=== PATIENT | male | born 1960 ===

== ENCOUNTER 2018-07-05 17:00 | Inpatient (IN) | payer SELFPAY ==
[2018-07-05] MEDS ORDERED: ACETAMINOPHEN 325 MG TAB PO PRN (19:44)
[2018-07-05] MEDS ORDERED: LORazepam 0.5 MG TAB PO PRN (19:44)
[2018-07-05] MEDS ORDERED: MAG HYDROX/AL HYDROX/SIMETH 30 ML UDCUP PO PRN (19:44)
[2018-07-05] MEDS ORDERED: NICOTINE POLACRILEX 2 MG GUM B PRN (19:44)
[2018-07-05] MEDS ORDERED: MAGNESIUM HYDROXIDE 30 ML UDCUP PO PRN (19:44)
[2018-07-06] MEDS: ASPIRIN EC 81 MG TAB PO SCH (08:49)
[2018-07-06] MEDS: ESCITALOPRAM OXALATE 10 MG TAB PO SCH (13:13)
--- NOTE | 2018-07-06 13:30 | BCON ---
[f rep st] BEHAVIORAL HEALTH CONSULTATION DATE OF CONSULTATION: 07/06/2018 REFERRING PHYSICIAN: Milo Lombardo MD REASON FOR REFERRAL: Medical clearance for inpatient behavioral health stay. HISTORY OF PRESENT ILLNESS: This patient was sent to the emergency department from [facility] for depression. He is currently without any acute complaints. PAST MEDICAL HISTORY: 1. Obesity. 2. Hypertension. PAST SURGICAL HISTORY: He has had dental extractions. MEDICATIONS: Prior to admission, only aspirin. ALLERGIES: Listed to fish containing products and pollen extracts. SOCIAL HISTORY: He lives by himself in an apartment. He is a of both [employer] and the [employer]. 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 He is a nonsmoker. FAMILY HISTORY: Noncontributory. REVIEW OF SYSTEMS: He reports he has had recent weight loss due to depression and eating less food. He denies fevers or chills. He denies heat or cold intolerance. He denies cough or dyspnea. He denies nausea, vomiting, constipation, or diarrhea. Otherwise, a 10-point review of systems is negative. PHYSICAL EXAM: VITAL SIGNS: Blood pressure is 118/73, heart rate is 100, respiratory rate is 18, oxygen saturation is 94% on room air. Temperature is 36.5 degrees centigrade. His weight is 102.1 kg for a body mass index of 37.4. GENERAL: This is an obese man, dressed in street clothes, sitting up in his bed, cooperative and in no acute distress. HEENT: Extraocular movements are intact. Pupils are equal, round, and reactive to light. Mucous membranes are moist. Dentition is in poor condition. He has an uncrowded airway, Mallampati class 1. NECK: Supple. HEART: There is a regular rate and rhythm. He is tachycardiac. There are no murmurs, rubs, or gallops. There is no JVD. LUNGS : Clear to auscultation bilaterally. ABDOMEN: Obese and benign. EXTREMITIES : There is no cyanosis or clubbing, there is trace to 1+ edema of the left lower extremity. NEUROLOGIC: He is alert and oriented x3. Cranial nerves 2-12 are grossly intact. There is no focal weakness. Sensation is intact to light touch and gait is within normal limits. LABORATORY STUDIES: Drawn today. Renal function and electrolytes were normal except for a creatinine of 1.3 with an estimated GFR of 57. Hemoglobin A1c was normal at 4.8. Liver function tests revealed a slightly high conjugated bilirubin at 0.7 and otherwise were normal. Lipid panel showed a low cholesterol at 133, a low HDL at 29, and otherwise was unremarkable. ASSESSMENT/RECOMMENDATIONS: 1. Mental health issues pending further evaluation and management per Psychiatry and the mental health team. 2. Obesity with recent weight loss, likely due to his depression. He reported that he plans to establish a healthy diet and he gets regular exercise from walking. Consider dietary consult for educational purposes. 3. Tachycardia of unclear etiology. No signs of congestive heart failure. Observe and if he continues to be consistently tachycardic, consider an electrocardiogram. 4. Renal insufficiency, unclear chronicity. He reports a history of hypertension, so it might be hypertensive in etiology and it could be that he is no longer hypertensive having lost weight. Renal insufficiency should be taken into consideration in terms of psychiatric medication dosing. He should establish with a primary care provider if he has not already for further monitoring. I see no medical contraindications to this patient's continued stay on the inpatient behavioral health unit or to any psychiatric medications or procedures. Thank you very much for including me in the care of this patient and please do not hesitate to contact me or the hospitalist service should there be need for further medical evaluation. /[id number]/MODL MTDD
--- NOTE | 2018-07-06 13:59 | ASMTBHMTP ---
Master Treatment Plan Master Treatment Plan Answers: Depressed Mood with for: Suicidal Ideation Date: 07/06/2018 Diagnosis on Admission: unknown Expected length of stay: 3-5 Reason for admission: Notes: The patient reported that he had been experiencing "bad times." He reported that on June 10, 2018 he turned of his electricity and began to restrict his meals to a half meal per day as he "sat in the dark." The patient reported that he placed a kitchen knife in the bathroom and waited for the day to come that he would attempt suicide. Patient's stated presenting problems: Notes: The patient reported that he had experienced depressive symptoms on one other occasion; in 2014 he was evicted from a residence that he shared with his brother who was not paying his portion of the rent. They have since been estranged from one another. The patient is unemployed; citing a lack of citizenship documents. 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 Patient's goals for treatment: Notes: The patient would like to reintroduce healthy eating habits during inpatient tx. Patient's strengths: Notes: The patient reported that he is "good at figuring things out." Identify supports outside of hospital: Notes: The patient is supported by the [facility]. He has some relatives in [facility]. Discharge criteria: Notes: Suicidal ideation will resolve and the patient will have a plan to safely manage recurrent suicidal ideation. Initial disposition plan/considerations: Notes: The patient will return to his apartment and outpatient routine upon discharge. Master Treatment Plan Required Signatures Psychiatrist signature: Answers: Psychiatrist: RN on-shift signature: Answers: RN: Patient signature: Answers: Patient: Date Signed: 07/06/2018 01:58 PM Electronically Signed By:Stephanie Zacarias
--- NOTE | 2018-07-06 15:50 | BHP ---
[f rep st] BEHAVIORAL HEALTH HISTORY AND PHYSICAL DATE OF ADMISSION: 07/05/2018 REASON FOR ADMISSION: Patient is a 57-year-old male with a history of untreated depression . He states that he suffered from depression off and on throughout his adult life, but has not ever sought treatment. He states in recent times that the depression has been worse in 2014, when he lost all his belongings after getting evicted from an apartment. At that time, he also states he took an overdose of about 50 Benadryl pills. He states "I just slept really well," but did not seek treatme nt. Recently, he states his mood has been declining for several months and that he has been isolatin g in his apartment. He reports a gradual decrease in his interactions with others. 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 After that, he had no income and was u nable to even take the bus around town. He bought non-perishable foods and states that he got to whe re he did not leave the apartment, but that he would eat half of 1 meal a day. He states he has done this since June 11, 2018. He also states that he "turned off all the lights and just sat there." B y this, he states he means that he turned off the lights in his apartment, his radio and television, and tried his cellphone. He states that he "just sat there day after day, trying to decide if today was the day I would walk into the bathroom and kill myself with a kitchen knife." He states "I just sat there thinking and doing math problems in my head." Prior to this, he reports increasingly sever e depressed mood, poor energy and motivation, anhedonia, isolation, decreased appetite, poor sleep, a nd ruminative thoughts of , dying and suicide. Today, the patient states that he would like to investigate options for treatment and states that he is glad he is not . He states that his supp ort person from the [facility] came by his apartment to check on him or he is pretty sure he would have kille d himself eventually. He states that he is willing to follow my advice if I believe he needs some fo rm of treatment for depression. PAST PSYCHIATRIC HISTORY: Patient has no previous treatments of any kind. He did have the depressiv e episode in 2014, was not hospitalized. He also had a suicide attempt at that time. ALLERGIES: To fish and pollen. CURRENT MEDICATIONS: Just aspirin 81 mg daily. PAST MEDICAL HISTORY: Significant for obesity and past hypertension. SOCIAL HISTORY: Patient was born and raised in [place], but has been in [place] since the late . He served 4 years in the [employer] and 3 years in the [employer] during [employer]. He has VA benefits, fernando pierce has no service connection. He does have combat experience in the [employer] during [employer]. 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 His main supports are throug h the [facility] with 2 counselors who visits him intermittently. He reports having erased all the numbers i n his phone "while I was tidying up before killing myself." He states that he has no other supports or friends, however. He has 2 brothers, but 1 of the brothers he was living with when he got evicted from the apartment, and he blames this brother for that as he had not paid his part of the rent for approximately 8 months unbeknownst to the patient. Patient lives in at apartment in [place] at this time, which he states he enjoys. He reports money being tight as he does not receive disability inc ome and does not work. Patient lives generally on the money he makes from day labor. He has not wor ked since the first of this year due to feeling unmotivated and also because he does not have a certificate or stake driver's license since losing his belongings in 2014. 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 FAMILY HISTORY: Patient has an older brother who committed suicide and had depression. ADMISSION LABORATORY: Serum chemistries are normal. A1c is normal at 4.8. Liver function is normal . Cholesterol is low at 133. Urine drug screen is pending at dictation. MENTAL STATUS EXAMINATION: Reveals an adequately groomed, obese male. He is pleasant, int eractive, displaying good eye contact and overall calm and pleasant demeanor. His mood is described as "depressed." His thought process is linear and goal directed. His thought content reveals no olivia dence of psychosis. He is alert and oriented to person, place, time, and situation, and his sensoriu m is clear. He continues to endorse active thoughts of suicide, stating that if he was not in the ho spital that he would act to kill himself. He states, however, that he wants help and that he is safe if he is in the hospital and will participate in his care. His intellect appears to be average to a claudia average as evidenced by his educational and occupational history, his fund of knowledge and voca bulary. His insight and judgment appear to be good. IMPRESSION: Major depressive disorder, recurrent, severe, without psychosis; social isolation; lack of supports; financial problems. Patient is a 57-year-old male with a longstanding history of rather chronic depression. He describes 2 episodes in the last 5 years of recurrent major depression with this being worst. At th is time, he states that he would like an evaluation for possible medication treatment and does seem t o be at high risk for completed suicide. PLAN: 1. Admit to behavioral health services inpatient unit on an M1 hold. 2. Discussed with patient at length various antidepressant medications and the potential for relief of his depressive symptoms. The risks, benefits, and alternatives of Lexapro were reviewed as he bel ieves this might be his first choice. We will begin this at 10 mg daily and monitor. 3. Engage in individual, group, and milieu psychotherapies to work with patient on better understand ing his current situation. 4. We will engage patient hopefully in more outpatient [facility] and also that [facility] is available in the community. 5. Will help patient identify resources, possible disability. 6. Estimated length of stay is 5 to 7 days. /[id number]/MODL
[2018-07-07] MEDS: ASPIRIN EC 81 MG TAB PO SCH (11:24)
[2018-07-07] MEDS: ESCITALOPRAM OXALATE 10 MG TAB PO SCH (11:24)
--- NOTE | 2018-07-07 13:48 | SOAPPROG ---
SOAP Progress Note Assessment/Plan: Assessment: Plan: 07/07/18 13:48 Mood: Subjectively improved. CCM. Convert to voluntary status. Subjective: Pt seen, discussed with staff. Reports feeling "a lot better" after one dose of Lexapro. Continues to refuse groups saying he doesn't like the topic or has already learned it. Aloof, rather odd. Interacts superficially with others. Agreeable to staying voluntarily over weekend. Discussed need for return to more social activities. He agrees, but cites financial barriers. Objective: Vital Signs Temp Pulse Resp BP Pulse Ox 36.3 C 90 1 L 119/73 93 07/07/18 06:00 07/07/18 06:00 07/07/18 06:00 07/07/18 06:00 07/07/18 06:00 Laboratory Results 07/06/18 06:50 MSE: Marginally groomed, cooperative and appropriately interactive. Affect is restricted, stable, approp. Mood is "better." TP is linear. TC reveals no psychosis. - Time Spent With Patient Time Spent With Patient: 25" ICD10 Worksheet Patient Problems: Problems Problem Status Onset Major depressive disorder, recurrent, severe w/o psychotic behavior Acute - ICD10 Problem Qualifiers (1) Major depressive disorder, recurrent, severe w/o psychotic behavior
--- NOTE | 2018-07-07 13:56 | ASMTCMCOM ---
CM Note CM Note Notes: Pt. reports his is "reactivating my medicaid", adding he just spoke with a medicaid veterans employment representative. Pt. reports he is "doing much better". Pt. stated he slept "quite well". Pt. reports eating light meals, stating he was on a "starvation diet" last month. Pt. stated he was starving himself while he was "contemplating". Pt. stated he thinks his medication maybe causing a stutter. Pt. stated he is "not sure" but stated if so "something I can live with". 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 Pt. reports "making a point of it" to attend groups. Pt. denied SI, HI, AVH and paranoia Pt. reports he is in "much better mood". Pt. reports needing outpatient providers in [place]. Pt. presents as alert, calm, soft spoken, some eye contact, polite, and cooperative. Staff report pt. sleeping 9 hours and being medication compliant. CC to get [facility] MICHAEL and reach out to setup intake appointment in [place] for pt. Date Signed: 07/07/2018 01:56 PM Electronically Signed By:Karishma Jiang
[2018-07-08] MEDS: ASPIRIN EC 81 MG TAB PO SCH (08:09)
[2018-07-08] MEDS: ESCITALOPRAM OXALATE 10 MG TAB PO SCH (08:09)
--- NOTE | 2018-07-08 14:58 | ASMTCMCOM ---
CM Note CM Note Notes: Pt. reports feeling "pretty good". Pt. stated he "sleep well". Pt. stated he is still eating "light meals" with the goal of "could lose 20kg". Pt. stated he is attending groups, but journals during art group. Pt. stated he has "nothing worth complaining about". Pt. stated he is currently Voluntary and plans to leave between Tuesday and Tuesday. Pt. stated he is trying to get the form to apply for a new social security card. Pt. denied SI, HI, AVH and paranoia. Pt. presents as alert, calm, bit unkempt, fair eye contact, and cooperative. Staff report pt. sleeping 9.5 hours and being medication compliant. CC sent referral to [facility], weekday CC to reach out to [facility] about follow up appointments. Date Signed: 07/08/2018 02:57 PM Electronically Signed By:Karishma Jiang
--- NOTE | 2018-07-08 17:12 | SOAPPROG ---
SOAP Progress Note Assessment/Plan: Assessment: Per Dr. Lombardo's note: 07/07/18 13:48 Mood: Subjectively improved. CCM. Convert to voluntary status. Subjective: Pt seen, discussed with staff. Reports feeling "a lot better" after one dose of Lexapro. Continues to refuse groups saying he doesn't like the topic or has already learned it. Aloof, rather odd. Interacts superficially with others. Agreeable to staying voluntarily over weekend. Discussed need for return to more social activities. He agrees, but cites financial barriers. Plan: 07/08/18 17:09 1. Patient says he can "already feel the medicine working." 2. Patient would like to stay in hospital until " or Tuesday" when he can "get my new Social Security" card. 3. Voluntary Subjective: Patient denies any SE's from new medication, Lexapro. He says "I can already feel it working." He says he has "nothing to complain about." He wants to stay in hospital until he can get his new social security card. Does not endorse any psych sxs. He denies any SI/HI. Objective: Vital Signs Temp Pulse Resp BP Pulse Ox 37.0 C 90 14 101/56 L 95 07/08/18 06:49 07/08/18 06:49 07/08/18 06:49 07/08/18 06:49 07/08/18 06:49 Laboratory Results 07/06/18 06:50 MSE: Affect: Pleasant, euthymic Mood: "Good" TP: Linear, goal-directed TC: Denies any SI/HI Insight/Judgment: Fair - Time Spent With Patient Time Spent With Patient: 15" - Pending Discharge Pending Discharge Within 24 Hours: No Pending Discharge Within 48 Hours: No ICD10 Worksheet Patient Problems: Problems Problem Status Onset Major depressive disorder, recurrent, severe w/o psychotic behavior Acute
[2018-07-09] MEDS: ASPIRIN EC 81 MG TAB PO SCH (08:23)
[2018-07-09] MEDS: ESCITALOPRAM OXALATE 10 MG TAB PO SCH (08:23)
--- NOTE | 2018-07-09 17:31 | SOAPPROG ---
SOAP Progress Note Assessment/Plan: Assessment: Per Dr. Lombardo's note: 07/07/18 13:48 Mood: Subjectively improved. CCM. Convert to voluntary status. Subjective: Pt seen, discussed with staff. Reports feeling "a lot better" after one dose of Lexapro. Continues to refuse groups saying he doesn't like the topic or has already learned it. Aloof, rather odd. Interacts superficially with others. Agreeable to staying voluntarily over weekend. Discussed need for return to more social activities. He agrees, but cites financial barriers. Plan: 07/08/18 17:09 1. Patient says he can "already feel the medicine working." 2. Patient would like to stay in hospital until " or Tuesday" when he can "get my new Social Security" card. 3. Voluntary 07/09/18 17:28 1. Patient denies any complaints or SE's from new medication. 2. Patient not interested in attending any groups today. Instead, he sits in front of TV and waits for group to be over so he can turn on TV. 3. Voluntary Subjective: Patient sitting in front of TV even thought it's turned off. He says he's waiting for group to be over so he can turn the TV on. MD suggests he might try going to group therapy, that way he doesn't have to wait and he might be able to learn/share something important with his peers. He declines. Objective: Vital Signs Temp Pulse Resp BP Pulse Ox 37.0 C 93 16 136/85 H 93 07/09/18 06:00 07/09/18 06:00 07/09/18 06:00 07/09/18 06:00 07/09/18 06:00 Laboratory Results 07/06/18 06:50 MSE: Affect: Euthymic Mood: "Good" TP: Linear TC: Denies any SI/HI Insight/ Judgment: Poor a/e/b refusal to participate in treatment - Time Spent With Patient Time Spent With Patient: 15" - Pending Discharge Pending Discharge Within 24 Hours: No Pending Discharge Within 48 Hours: No ICD10 Worksheet Patient Problems: Problems Problem Status Onset Major depressive disorder, recurrent, severe w/o psychotic behavior Acute
--- NOTE | 2018-07-09 17:32 | ASMTCMCOM ---
CM Note CM Note Notes: The patient presents as cheerful and is observed being friendly with peer patients and staff in the milieu. The patient requested to discharge on July 14. The patient plans to retrieve a copy of his Social Security card by this date. Date Signed: 07/09/2018 05:32 PM Electronically Signed By:Stephanie Zacarias
[2018-07-10] MEDS: ASPIRIN EC 81 MG TAB PO SCH (08:15)
[2018-07-10] MEDS: ESCITALOPRAM OXALATE 10 MG TAB PO SCH (08:15)
--- NOTE | 2018-07-10 12:01 | ASMTCMCOM ---
CM Note CM Note Notes: The patient participated in clinical treatment team rounds. He reported improvement in his mood. The patient requested to discharge on 07/14/18. The team discussed with the patient accessing services at the [facility] (information placed on chart) including signing an MICHAEL to coordinate care. The patient reported constipation; suspected due to change in diet. The patient agreed to introduced higher fiber foods into his regimen. Date Signed: 07/10/2018 12:01 PM Electronically Signed By:Stephanie Zacarias
--- NOTE | 2018-07-10 12:59 | SOAPPROG ---
SOAP Progress Note Assessment/Plan: Assessment: Plan: 07/07/18 13:48 Mood: Subjectively improved. CCM. Convert to voluntary status. 07/10/18 12:58 Mood: Continued improvement. Will CCM and d/c planning. Subjective: Pt seen, discussed with staff, interviewed in Treatment Team meeting. He reports feeling "a lot better". States he wants to "keep working on my issues. " States he is not ready to go home yet as he need to feel more confident about his recovery and safety. We reviewed his treatment and discharge plans and he is in agreement. Tolerating Lexapro well with no SE's. MSE: Calm, coop. Affect is brighter, stable, approp. Mood is "better." TP is linear. TC reveals no psychosis. SI is "better." Objective: Vital Signs Temp Pulse Resp BP Pulse Ox 36.7 C 100 18 152/65 H 93 07/10/18 06:00 07/10/18 06:00 07/10/18 06:00 07/10/18 06:00 07/10/18 06:00 Laboratory Results 07/06/18 06:50 - Time Spent With Patient Time Spent With Patient: 25" ICD10 Worksheet Patient Problems: Problems Problem Status Onset Major depressive disorder, recurrent, severe w/o psychotic behavior Acute - ICD10 Problem Qualifiers (1) Major depressive disorder, recurrent, severe w/o psychotic behavior
--- NOTE | 2018-07-10 13:13 | ASMTCMCOM ---
CM Note CM Note Notes: CC was unable to contact any member of client's next of kin due to client denying any access for this database report writer to out reach anyone. Date Signed: 07/10/2018 01:02 PM Electronically Signed By:Chris Smith
[2018-07-11] MEDS: ASPIRIN EC 81 MG TAB PO SCH (08:04)
[2018-07-11] MEDS: ESCITALOPRAM OXALATE 10 MG TAB PO SCH (08:04)
--- NOTE | 2018-07-11 12:53 | ASMTCMCOM ---
CM Note CM Note Notes: Pt. reports feeling "pretty good". Pt. stated he has been "blocking out 8 hours for [sleep] period for years". Pt. reports being "close to having full meals". Pt. reports no issues with his current medication. Pt. stated he is attending as many groups as he can. Pt. denied SI, HI, AVH and paranoia. Pt. shared he listens to [employer] and reads [employer] and is interested what they said for . Pt. presents as alert, calm, good eye contact, a bit unkempt, friendly, and cooperative. Staff report pt. sleeping 110.5 hours and being medication compliant. CC to schedule intake assessment appointment with pt with Andrew FENG. Pt. will discharge by tuesday. Date Signed: 07/11/2018 12:49 PM Electronically Signed By:Karishma Jiang
--- NOTE | 2018-07-11 20:14 | SOAPPROG ---
DANIAL Progress Note Assessment/Plan: Assessment: Plan: 07/07/18 13:48 Mood: Subjectively improved. CCM. Convert to voluntary status. 07/10/18 12:58 Mood: Continued improvement. Will CCM and d/c planning. 07/11/18 20:13 Mood: Doing well. Will finalize d/c and f/u plans and proceed with d/c. Subjective: Pt seen, discussed with staff. Reports feeling "so much better." Remains aloof , isolating in his room. Attends few groups. [facility]. SI is "better." Objective: Vital Signs Temp Pulse Resp BP Pulse Ox 36.9 C 77 16 160/92 H 96 07/11/18 06:00 07/11/18 06:00 07/11/18 06:00 07/11/18 06:00 07/11/18 06:00 Laboratory Results 07/06/18 06:50 MSE: Calm, coop. Affect is euthymic, stable, approp. Mood is "good." TP is linear. TC reveals no psychosis. Denies SI. - Time Spent With Patient Time Spent With Patient: 25" ICD10 Worksheet Patient Problems: Problems Problem Status Onset Major depressive disorder, recurrent, severe w/o psychotic behavior Acute - ICD10 Problem Qualifiers (1) Major depressive disorder, recurrent, severe w/o psychotic behavior
[2018-07-12 06:26] VITALS: BP 165/95
[2018-07-12] MEDS: ASPIRIN EC 81 MG TAB PO SCH (08:14)
[2018-07-12] MEDS: ESCITALOPRAM OXALATE 10 MG TAB PO SCH (08:14)
--- NOTE | 2018-07-12 11:10 | ASMTBHDC ---
Notes Note: Notes: Ct. is discharging today. [facility] at 1:00pm intake appointment 07/25/18 at 2:[address] Lerma - psychiatrist [id number], [place] [address] D/C summary to be faxed to [facility] [phone] Date Signed: 07/12/2018 11:09 AM Electronically Signed By:Oneyda Diaz
== END 2018-07-12 13:35 | disposition home or self-care (01) | DRG 885 ==
LOC: BBEH 17:00
PROVIDERS: ADMIT Psychiatry & Neurology Psychiatry; ATTEND Psychiatry & Neurology Psychiatry
DX: F33.2 Major depressive disorder, recurrent severe without psychotic features (principal); I10 Essential (primary) hypertension; R00.0 Tachycardia, unspecified; E66.9 Obesity, unspecified; Z68.39 Body mass index [BMI] 39.0-39.9, adult
CPT/HCPCS: 80307; G0480